=== PATIENT | male | born 1960 | race Caucasian/White ===

== ENCOUNTER 2016-12-13 08:16 | Day surgery (SDC) | payer BC ==
[~2016-12-13] VITALS: Ht 185.4 cm; Wt 85.3 kg
[~2016-12-13 08:16] MED LIST: BIOTIN10 MG PO; CALTRATE 600600 MG PO; DAILY MULTIPLE1 EACH PO; NORCO 5-325 TA1 EACH PO; SYNTHROID137 MCG PO; VITAMIN B122500 MCG PO
[2016-12-13] MEDS ORDERED: OMEGA 3 FISH O1 EACH PO (08:33)
--- NOTE | 2016-12-13 09:52 | NUR ---
12/13/16 0952 Georgie Davey 0993 PATIENT ARRIVES TO PACU SLEEPING, AWAKENS TO VERBAL STIMULI. RESP EVEN AND UNLABORED. NC AT 3 LITERS. PATIENT ANSWERS QUESTIONS APPROPRIATELY, DENIES NEEDS, BACK TO SLEEP.
--- NOTE | 2016-12-15 08:29 | OR ---
[facility] [address], [place] [address] Signed DATE OF PROCEDURE: 12/13/16 PREOPERATIVE DIAGNOSES Change in bowel habits. Lower abdominal pain and cramping. Bloating. POSTOPERATIVE DIAGNOSES A 5-mm polyp at 65 cm. Peroneal skin tag (4 mm). PROCEDURE: Colonoscopy without biopsy. ESTIMATED BLOOD LOSS: None. INDICATIONS Joaquín is a 56-year-old gentleman, who was asked to see me for a colonoscopy. He describes a change in bowel habits with bilateral lower abdominal pain, bloating, and cramping and then gas. He said there is no family history of colon cancer or polyps. He has never had a previous colonoscopy. I gave him a pamphlet on colonoscopy and we looked at that together. He understands the nature of the test along with the risks including, but not limited to gas bloating, crampy abdominal pain bleeding perforation requiring surgery, and missed diagnosis. He also understands the need for IV conscious sedation. He had expressed understanding wished to proceed. PROCEDURE NOTE Joaquín was taken into our endoscopy suite and placed in the left lateral decubitus position. He was given divided doses of 11 mg of Versed and 200 mcg of Fentanyl. A digital rectal exam was performed and this was unremarkable. He is just getting a little induration to the prostate consistent with his age. The adult colonoscope was introduced and advanced all around into the cecum under direct visualization of the camera without difficulty. His prep was quite good. The scope was then slowly withdrawn. He had just a small 4-5 mm polyp at 65 cm. It was easily removed with a hot biopsy forceps. There was no evidence of any diverticula. The rectum was unremarkable. Upon retroflexion of scope, there was no additional pathology noted above the anal canal. After this, the gas was suctioned out. The colonoscope removed. We did notice just a small perineal skin tag midway between the anus and the base of the scrotum right in the midline. It is about 4 mm in size and appears benign. Joaquín tolerated the procedure quite well. RECOMMENDATIONS Joaquín will follow up in my office in 7 to 14 days to review his results. We will discuss the pathology report and I will mention the small perineal skin tag. Electronically Signed By: HEYDI VILLAFUERTE MD 12/15/16 0829 PATIENT NAME: JOAQUÍN VALENTINE OPERATIVE REPORT DATE OF : 64 PHYSICIAN: HEYDI VILLAFUERTE MD REPORT #: [id number] REPORT IS CONFIDENTIAL AND NOT TO BE RELEASED WITHOUT AUTHORIZATION [facility] [address] [place] [id number] Signed MD ALIREZA Denson/Modl /[id number] cc: Annmarie Buchanan PA-C Electronically Signed By: HEYDI VILLAFUERTE MD 12/15/16 0829 PATIENT NAME: JOAQUÍN VALENTINE OPERATIVE REPORT DATE OF : 64 PHYSICIAN: HEYDI VILLAFUERTE MD REPORT #: [id number] REPORT IS CONFIDENTIAL AND NOT TO BE RELEASED WITHOUT AUTHORIZATION
== END 2016-12-13 10:25 | disposition home or self-care (01) ==
LOC: DS 08:16
PROVIDERS: Colon & Rectal Surgery
PROC: 0DBE8ZX Excision of Large Intestine, Via Natural or Artificial Opening Endoscopic, Diagnostic (ICD-10-PCS; principal; 2016-12-13 10:00)
DX: K63.5 Polyp of colon (principal); K64.4 Residual hemorrhoidal skin tags; E89.0 Postprocedural hypothyroidism; Z98.890 Other specified postprocedural states; Z90.89 Acquired absence of other organs; Z87.442 Personal history of urinary calculi; Z98.52 Vasectomy status; Z88.5 Allergy status to narcotic agent; Z88.1 Allergy status to other antibiotic agents; Z88.2 Allergy status to sulfonamides
CPT/HCPCS: 99152; 99153; J2250; J3010; J7120